=== PATIENT | male | born 1965 | race Caucasian/White ===

== ENCOUNTER → 2019-07-19 | Outpatient (REF) | payer BC | LOC: M LAB LCGH 11:54 | PROVIDERS: ATTEND Surgery | DX: Z12.11 Encounter for screening for malignant neoplasm of colon (principal); K63.5 Polyp of colon ==

== ENCOUNTER → 2019-07-20 | Outpatient (REF) | payer BC | LOC: M LAB LCGH 16:20 | PROVIDERS: ATTEND Nurse Practitioner Family | DX: D48.9 Neoplasm of uncertain behavior, unspecified (principal) ==

== ENCOUNTER → 2020-09-01 | Outpatient (REF) | payer BC | LOC: M LAB REF 09:20 | PROVIDERS: ATTEND Dermatology | DX: C44.319 Basal cell carcinoma of skin of other parts of face (principal) ==

== ENCOUNTER → 2020-09-29 | Outpatient (REF) | payer BC | LOC: M LAB REF 09:42 | PROVIDERS: ATTEND Dermatology | DX: C44.320 Squamous cell carcinoma of skin of unspecified parts of face (principal); C44.1192 Basal cell carcinoma of skin of left lower eyelid, including canthus ==

== ENCOUNTER → 2021-05-18 | Outpatient (REF) | payer BC | LOC: M LAB REF 17:30 | PROVIDERS: ATTEND Dermatology | DX: C44.529 Squamous cell carcinoma of skin of other part of trunk (principal) ==

== ENCOUNTER → 2021-09-21 | Outpatient (REF) | payer BC, OTHER | LOC: M SFHCDERM 13:45 | PROVIDERS: ATTEND Nurse Practitioner Family | DX: C44.519 Basal cell carcinoma of skin of other part of trunk (principal) ==